=== PATIENT | female | born 1960 | race Caucasian/White ===

== ENCOUNTER 2023-04-27 10:39 | Emergency (ER) | payer OTHER ==
[2023-04-27 11:05] VITALS: TEMP 98
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
[2023-04-27 11:44] VITALS: BP 170/87; PULSE 84; RESP 18
== END 2023-04-27 11:48 | disposition home or self-care (01) ==
LOC: EC 10:39
DX: S41.152A Open bite of left upper arm, initial encounter (principal); J45.909 Unspecified asthma, uncomplicated; I10 Essential (primary) hypertension; F17.200 Nicotine dependence, unspecified, uncomplicated; Z88.0 Allergy status to penicillin; Z88.5 Allergy status to narcotic agent; W50.3XXA Accidental bite by another person, initial encounter
CPT/HCPCS: 99282